=== PATIENT | male | born 1970 | race African-American/Black ===

== ENCOUNTER 2019-10-04 15:22 | Inpatient (IN) | payer MEDICAID, OTHER ==
[~2019-10-04] VITALS: Ht 175.3 cm; Wt 83.7 kg
[2019-10-04] MEDS ORDERED: ASPIRIN 81MG TABLET PO ONE (15:45)
[2019-10-04] MEDS ORDERED: VISCOUS LIDOCAINE 2% 15 ML UDC PO ONE (15:45)
[2019-10-04] MEDS ORDERED: MAGNESIUM/ALUMINUM HYDROXIDE/SIMETHICONE 30ML UDC PO ONE (15:45)
[2019-10-04 16:10] LABS: BASOPHILS % 0.5 % (0.0-2.0); EOSINOPHILS % 3.5 % (0.0-5.0); HEMATOCRIT. 40.2 % (42.0-52.0); HEMOGLOBIN. 13.3 g/dL (14.0-18.0); LYMPHOCYTES % 24.6 % (20.0-50.0); MEAN CORPUSCULAR HEMOGLOBIN 27.8 pg (28.0-32.0); MEAN CORPUSCULAR VOLUME 84.1 fL (80.0-94.0); MEAN PLATELET VOLUME 8.5 fl (7.4-10.4); MONOCYTES % 9.4 % (2.0-8.0); PLATELET 218 x1000/uL (130-400); RED BLOOD CELL COUNT 4.78 mill/uL (4.7-6.1)
[2019-10-04 16:14] LABS: CHLORIDE 109 mEq/L (98-107)
[2019-10-04 16:16] LABS: PROTHROMBIN TIME 10.4 sec (9.6-11.0)
[2019-10-04] MEDS ORDERED: NITROGLYCERIN 0.4MG TABLET SL SL ONE (18:30)
[2019-10-04] MEDS: MORPHINE SULFATE 2 MG/ML CPJ (NOT FOR IM USE) IV PRN ×2 (21:04→21:45)
[2019-10-04 22:20] VITALS: BP 108/75
[2019-10-04] MEDS ORDERED: NITROGLYCERIN 0.4MG TABLET SL SL PRN (22:45)
[2019-10-04] MEDS: METOPROLOL TARTRATE 25MG TABLET PO SCH (23:41)
[2019-10-04] MEDS: HYDROCODONE/ACETAMINOPHEN 10/325MG TABLET PO PRN (23:56)
[2019-10-05] MEDS ORDERED: BACL-141 PO (02:45)
[2019-10-05] MEDS ORDERED: RANI-645 PO (02:45)
[2019-10-05] MEDS ORDERED: TOPUD PO (02:45)
[2019-10-05] MEDS ORDERED: LORA10TA7 PO (02:45)
[2019-10-05] MEDS ORDERED: TRAM100C3 PO (02:45)
[2019-10-05 04:00] VITALS: BP_SYST 100; BP_SYST 94; BP_DIAS 63; BP_DIAS 65
[2019-10-05] MEDS: HYDROCODONE/ACETAMINOPHEN 10/325MG TABLET PO PRN ×2 (05:22→09:05)
[2019-10-05 06:32] LABS: HEMATOCRIT 38.4 % (42.0-52.0); HEMOGLOBIN 12.8 g/dL (14.0-18.0); MEAN CORPUSCULAR VOLUME 83.6 fL (80.0-94.0); PLATELET 192 x1000/uL (130-400); RED BLOOD CELL COUNT 4.59 mill/uL (4.7-6.1); RED CELL DISTRIBUTION WIDTH 16.1 % (11.6-14.6)
[2019-10-05 06:49] LABS: CHLORIDE 109 mEq/L (98-107)
[2019-10-05 06:56] LABS: LDL CHOLESTEROL 70 mg/dL (5-100)
[2019-10-05 06:57] LABS: HDL CHOLESTEROL 38 mg/dL (40-59)
[2019-10-05] MEDS: METOPROLOL TARTRATE 25MG TABLET PO SCH (09:05)
[2019-10-05] MEDS: ENOXAPARIN 40MG/0.4ML SYR SUBCUT SCH (09:06)
[2019-10-05] MEDS: ASPIRIN 325MG EC TABLET PO SCH (09:07)
[2019-10-05 12:00] VITALS: BP 171/76
[2019-10-05] MEDS ORDERED: CLONIDINE 0.1MG TABLET PO PRN (12:15)
[2019-10-05] MEDS ORDERED: MAGNESIUM/ALUMINUM HYDROXIDE/SIMETHICONE 30ML UDC PO PRN (12:15)
[2019-10-05] MEDS ORDERED: DOCUSATE SODIUM 100MG CAPSULE PO PRN (12:15)
[2019-10-05] MEDS ORDERED: ACETAMINOPHEN 325MG TABLET PO PRN (12:15)
[2019-10-05 16:00] VITALS: BP 94/54
[2019-10-05] MEDS: HYDROCODONE/ACETAMINOPHEN 5/325MG TABLET PO PRN (17:53)
[2019-10-05 20:00] VITALS: BP 115/79
[2019-10-05 20:05] LABS: PHOSPHORUS 3.5 mg/dL (2.5-4.9)
[2019-10-05 20:49] LABS: *AMPHETAMINES SCREEN URINE NEGATIVE (NEGATIVE); *BARBITURATES SCREEN URINE NEGATIVE (NEGATIVE)
[2019-10-05 20:50] LABS: *BENZODIAZEPINES SCREEN URINE NEGATIVE (NEGATIVE); *COCAINE SCREEN URINE NEGATIVE (NEGATIVE); CANNABINOID URINE SCREEN PRESUMTIVE POSITIVE (NEGATIVE); METHADONE URINE SCREEN NEGATIVE (NEGATIVE); OPIATES URINE SCREEN PRESUMTIVE POSITIVE (NEGATIVE); PHENCYCLIDINE URINE SCREEN NEGATIVE (NEGATIVE)
[2019-10-06] VITALS: BP 114/77
[2019-10-06] MEDS: HYDROCODONE/ACETAMINOPHEN 5/325MG TABLET PO PRN ×3 (02:50→20:30)
[2019-10-06 04:00] VITALS: BP 107/76
[2019-10-06] MEDS: NITROGLYCERIN 0.4MG TABLET SL SL PRN ×2 (05:03→07:49)
[2019-10-06 08:00] VITALS: BP 108/80
[2019-10-06] MEDS: ASPIRIN 325MG EC TABLET PO SCH (08:14)
[2019-10-06] MEDS: ENOXAPARIN 40MG/0.4ML SYR SUBCUT SCH ×2 (08:15→08:20)
[2019-10-06 09:02] LABS: EOSINOPHILS % 3.7 % (0.0-5.0); HEMATOCRIT. 40.7 % (42.0-52.0); HEMOGLOBIN. 13.5 g/dL (14.0-18.0); LYMPHOCYTES % 24.3 % (20.0-50.0); MEAN CORPUSCULAR HEMOGLOBIN 27.9 pg (28.0-32.0); MEAN PLATELET VOLUME 9.4 fl (7.4-10.4); MONOCYTES % 8.7 % (2.0-8.0); NEUTROPHILS % 62.3 % (40.0-76.0); PLATELET 212 x1000/uL (130-400); RED BLOOD CELL COUNT 4.85 mill/uL (4.7-6.1)
[2019-10-06 12:00] VITALS: BP 128/78
[2019-10-06 13:27] LABS: CHLORIDE 106 mEq/L (98-107)
[2019-10-06 13:38] LABS: PHOSPHORUS 3.7 mg/dL (2.5-4.9)
[2019-10-06 13:39] LABS: LDL CHOLESTEROL 73 mg/dL (5-100)
[2019-10-06 13:41] LABS: HDL CHOLESTEROL 34 mg/dL (40-59)
[2019-10-06 16:00] VITALS: BP 105/77
[2019-10-06 20:25] VITALS: BP 130/96
[2019-10-06] MEDS ORDERED: ZOLPIDEM TARTRATE 5MG TABLET PO PRN (20:30)
[2019-10-07] VITALS: BP 102/64
[2019-10-07 04:00] VITALS: BP 111/83
[2019-10-07 08:00] VITALS: BP 103/73
[2019-10-07] MEDS: ENOXAPARIN 40MG/0.4ML SYR SUBCUT SCH (09:00)
[2019-10-07] MEDS: ASPIRIN 325MG EC TABLET PO SCH (09:28)
[2019-10-07 13:26] VITALS: BP 131/83
== END 2019-10-07 14:44 | disposition home or self-care (01) | DRG 145 ==
LOC: ER 15:22 → 6WST 18:32 → ENRESERV 21:14
PROVIDERS: ADMIT Internal Medicine; ATTEND Internal Medicine
DX: R07.81 Pleurodynia (principal); N17.9 Acute kidney failure, unspecified; D63.8 Anemia in other chronic diseases classified elsewhere; E46 Unspecified protein-calorie malnutrition; E87.8 Other disorders of electrolyte and fluid balance, not elsewhere classified; I10 Essential (primary) hypertension; I44.1 Atrioventricular block, second degree; F19.10 Other psychoactive substance abuse, uncomplicated; J98.11 Atelectasis; R00.1 Bradycardia, unspecified; Z82.3 Family history of stroke; Z82.49 Family history of ischemic heart disease and other diseases of the circulatory system; Z87.891 Personal history of nicotine dependence; Z87.01 Personal history of pneumonia (recurrent); Z68.27 Body mass index [BMI] 27.0-27.9, adult; Z79.899 Other long term (current) drug therapy
CPT/HCPCS: 36415; 71045; 80048; 80053; 80061; 80305; 83735; 83880; 84100; 84443; 84484; 85025; 85027; 93005; 93306; 93970; 99285; J1650; J2270

== ENCOUNTER 2020-07-14 21:52 | Inpatient (IN) | payer MEDICAID, OTHER ==
[~2020-07-14] VITALS: Ht 185.4 cm; Wt 63.0 kg
[~2020-07-14 21:52] MED LIST: BACL-141 PO; LORA10TA7 PO; RANI-645 PO; TOPUD PO; TRAM100C3 PO
[2020-07-14] MEDS ORDERED: AMITRIPTYLINE 25MG TABLET PO ONE (23:00)
[2020-07-14] MEDS ORDERED: MORPHINE SULFATE 4 MG/ML CPJ (NOT FOR IM USE) IV ONE (23:00)
[2020-07-15] MEDS ORDERED: HYDROMORPHONE HCL/PF 2MG/ML CPJ IV ONE ×2 (01:00)
[2020-07-15] MEDS: METHOCARBAMOL 750MG TABLET PO SCH ×4 (01:17→21:50)
[2020-07-15 01:18] LABS: BASOPHILS % 0.4 % (0.0-2.0); EOSINOPHILS % 3.6 % (0.0-5.0); HEMATOCRIT. 35.1 % (42.0-52.0); HEMOGLOBIN. 11.8 g/dL (14.0-18.0); MEAN CORPUSCULAR HEMOGLOBIN 28.6 pg (28.0-32.0); MEAN CORPUSCULAR VOLUME 85.2 fL (80.0-94.0); MEAN PLATELET VOLUME 8.4 fl (7.4-10.4); PLATELET 276 x1000/uL (130-400); RED BLOOD CELL COUNT 4.13 mill/uL (4.7-6.1); RED CELL DISTRIBUTION WIDTH 14.4 % (11.6-14.6)
[2020-07-15 01:23] LABS: CHLORIDE 107 mEq/L (98-107)
[2020-07-15] MEDS ORDERED: METHOCARBAMOL 750MG TABLET PO SCH ×2 (06:00)
[2020-07-15] MEDS ORDERED: AZITHROMYCIN 500 MG TABLET PO NR (09:15)
[2020-07-15] MEDS ORDERED: ONDANSETRON HCL 4MG/2ML INJ IV PRN (09:15)
[2020-07-15] MEDS: MORPHINE SULFATE 2 MG/ML CPJ (NOT FOR IM USE) IV PRN ×3 (09:52→20:04)
[2020-07-15] MEDS ORDERED: CEFTRIAXONE 1 G PREMIX 50 ML IV SCH (10:30)
[2020-07-15] MEDS: HYDROCODONE/ACETAMINOPHEN 10/325MG TABLET PO PRN ×2 (11:58→23:06)
[2020-07-15 18:00] VITALS: BP 106/75
[2020-07-15] MEDS ORDERED: T3 PO (18:32)
[2020-07-15] MEDS ORDERED: GABA-529 MT (18:32)
[2020-07-15] MEDS ORDERED: MOBI7 MT (18:32)
[2020-07-15] MEDS ORDERED: IBUP-516 MT (18:32)
[2020-07-15 18:50] VITALS: BP 106/75
[2020-07-15] MEDS: MORPHINE SULFATE 15MG TABLET SR PO SCH (21:51)
[2020-07-16] VITALS: BP 111/78
[2020-07-16] MEDS: ZOLPIDEM TARTRATE 5MG TABLET PO PRN ×2 (00:39→21:15)
[2020-07-16 04:00] VITALS: BP 123/79
[2020-07-16] MEDS: METHOCARBAMOL 750MG TABLET PO SCH ×3 (05:23→21:12)
[2020-07-16 08:00] VITALS: BP 127/85
[2020-07-16] MEDS: AZITHROMYCIN 250 MG TABLET PO SCH (08:23)
[2020-07-16] MEDS: MORPHINE SULFATE 15MG TABLET SR PO SCH ×2 (08:24→21:12)
[2020-07-16] MEDS: CEFTRIAXONE 1,000 MG in DEXTROSE 5% WATER 50 ML IV SCH (09:44)
[2020-07-16] MEDS: HYDROCODONE/ACETAMINOPHEN 10/325MG TABLET PO PRN ×2 (10:04→18:13)
[2020-07-16] MEDS ORDERED: LORAZEPAM 2MG/ML CPJ IV NR (10:15)
[2020-07-16 12:00] VITALS: BP 116/77
[2020-07-16] MEDS ORDERED: GADOTERATE MEGLUMINE 5 MMOL/10 ML VIAL IV ONE (12:59)
[2020-07-16] MEDS: DOCUSATE SODIUM 100MG CAPSULE PO SCH (15:44)
[2020-07-16 16:00] VITALS: BP 115/73
[2020-07-16 20:00] VITALS: BP 102/61
[2020-07-17] VITALS: BP 100/66
[2020-07-17] MEDS: HYDROCODONE/ACETAMINOPHEN 10/325MG TABLET PO PRN ×4 (02:20→16:09)
[2020-07-17 04:00] VITALS: BP 106/63
[2020-07-17] MEDS: METHOCARBAMOL 750MG TABLET PO SCH ×3 (06:27→21:24)
[2020-07-17 08:00] VITALS: BP 112/76
[2020-07-17] MEDS: MULTIVITAMINS,THER W-MINERALS TABLET PO SCH (09:00)
[2020-07-17] MEDS: CEFTRIAXONE 1,000 MG in DEXTROSE 5% WATER 50 ML IV SCH (09:00)
[2020-07-17] MEDS: AZITHROMYCIN 250 MG TABLET PO SCH (09:01)
[2020-07-17] MEDS: MORPHINE SULFATE 15MG TABLET SR PO SCH ×2 (09:01→21:29)
[2020-07-17] MEDS: DOCUSATE SODIUM 100MG CAPSULE PO SCH (09:01)
[2020-07-17] MEDS ORDERED: NALOXONE HCL 0.4 MG/ML 1ML VIAL IV PRN (11:45)
[2020-07-17 12:00] VITALS: BP 135/90
[2020-07-17] MEDS: GABAPENTIN 300MG CAPSULE PO SCH ×2 (15:14→21:31)
[2020-07-17] MEDS: HYDROMORPHONE HCL/PF 2MG/ML CPJ IV PRN (19:46)
[2020-07-17 20:00] VITALS: BP 128/69
[2020-07-18] VITALS: BP 124/78
[2020-07-18] MEDS: HYDROCODONE/ACETAMINOPHEN 10/325MG TABLET PO PRN ×4 (00:07→18:29)
[2020-07-18] MEDS: LIDOCAINE 5% PATCH TOP SCH ×2 (00:07→10:23)
[2020-07-18] MEDS: ZOLPIDEM TARTRATE 5MG TABLET PO PRN ×2 (00:08→21:14)
[2020-07-18 04:00] VITALS: BP 120/75
[2020-07-18] MEDS: METHOCARBAMOL 750MG TABLET PO SCH ×3 (06:22→21:14)
[2020-07-18] MEDS: GABAPENTIN 300MG CAPSULE PO SCH ×3 (06:22→21:14)
[2020-07-18 08:00] VITALS: BP 118/79
[2020-07-18] MEDS: CEFTRIAXONE 1,000 MG in DEXTROSE 5% WATER 50 ML IV SCH (08:45)
[2020-07-18] MEDS: AZITHROMYCIN 250 MG TABLET PO SCH (08:46)
[2020-07-18] MEDS: DOCUSATE SODIUM 100MG CAPSULE PO SCH (08:46)
[2020-07-18] MEDS: MULTIVITAMINS,THER W-MINERALS TABLET PO SCH (08:46)
[2020-07-18] MEDS: MORPHINE SULFATE 15MG TABLET SR PO SCH ×2 (08:47→21:17)
[2020-07-18 09:34] LABS: BASOPHILS % 0.6 % (0.0-2.0); EOSINOPHILS % 3.2 % (0.0-5.0); HEMATOCRIT. 38.3 % (42.0-52.0); HEMOGLOBIN. 13.1 g/dL (14.0-18.0); LYMPHOCYTES % 22.1 % (20.0-50.0); MEAN CORPUSCULAR HEMOGLOBIN 28.6 pg (28.0-32.0); MEAN CORPUSCULAR VOLUME 83.4 fL (80.0-94.0); MEAN PLATELET VOLUME 8.2 fl (7.4-10.4); MONOCYTES % 9.9 % (2.0-8.0); NEUTROPHILS % 64.2 % (40.0-76.0); PLATELET 285 x1000/uL (130-400); RED BLOOD CELL COUNT 4.59 mill/uL (4.7-6.1)
[2020-07-18 09:47] LABS: CHLORIDE 99 mEq/L (98-107)
[2020-07-18 10:10] LABS: KAPPA LT CHAINS FREE SERUM 28.6 mg/L (3.3-19.4); KAPPA/LAMBDA RATIO 1.1 (0.26-1.65); LAMBDA LT CHAINS FREE SERUM 26.1 mg/L (5.7-26.3)
[2020-07-18] MEDS ORDERED: ZOLP5TAB2 PO (11:51)
[2020-07-18] MEDS ORDERED: HYDR-4009 PO ×2 (11:51)
[2020-07-18] MEDS ORDERED: LIDO700A30 TOP (11:51)
[2020-07-18] MEDS ORDERED: HYDR2TAB7 MT ×2 (11:51)
[2020-07-18] MEDS ORDERED: GABA-532 PO (11:51)
[2020-07-18] MEDS ORDERED: DOCU-150 PO (11:51)
[2020-07-18] MEDS ORDERED: MSCON15 PO ×2 (11:51)
[2020-07-18] MEDS ORDERED: METH-774 PO (11:51)
[2020-07-18] MEDS ORDERED: LEVO500T89 MT ×2 (11:53)
[2020-07-18] MEDS: HYDROMORPHONE HCL/PF 2MG/ML CPJ IV PRN ×2 (13:17→21:24)
[2020-07-18 16:00] VITALS: BP 109/87
[2020-07-19] MEDS: HYDROMORPHONE HCL/PF 2MG/ML CPJ IV PRN ×3 (03:25→13:05)
[2020-07-19 04:00] VITALS: BP 111/73
[2020-07-19] MEDS: METHOCARBAMOL 750MG TABLET PO SCH ×3 (06:19→21:36)
[2020-07-19] MEDS: GABAPENTIN 300MG CAPSULE PO SCH ×3 (06:19→21:36)
[2020-07-19 06:49] LABS: BASOPHILS % 0.5 % (0.0-2.0); EOSINOPHILS % 3.7 % (0.0-5.0); HEMATOCRIT. 39.8 % (42.0-52.0); HEMOGLOBIN. 13.4 g/dL (14.0-18.0); LYMPHOCYTES % 25.5 % (20.0-50.0); MEAN CORPUSCULAR HEMOGLOBIN 28.5 pg (28.0-32.0); MEAN CORPUSCULAR VOLUME 84.6 fL (80.0-94.0); MEAN PLATELET VOLUME 8.1 fl (7.4-10.4); MONOCYTES % 11.2 % (2.0-8.0); NEUTROPHILS % 59.1 % (40.0-76.0); PLATELET 282 x1000/uL (130-400); RED BLOOD CELL COUNT 4.71 mill/uL (4.7-6.1)
[2020-07-19 06:52] LABS: CHLORIDE 100 mEq/L (98-107)
[2020-07-19] MEDS: LIDOCAINE 5% PATCH TOP SCH (09:00)
[2020-07-19] MEDS: CEFTRIAXONE 1,000 MG in DEXTROSE 5% WATER 50 ML IV SCH (09:57)
[2020-07-19] MEDS: MULTIVITAMINS,THER W-MINERALS TABLET PO SCH (09:58)
[2020-07-19] MEDS: DOCUSATE SODIUM 100MG CAPSULE PO SCH (09:58)
[2020-07-19] MEDS: AZITHROMYCIN 250 MG TABLET PO SCH (09:59)
[2020-07-19] MEDS ORDERED: LACTULOSE 20G/30ML UDC PO PRN (10:00)
[2020-07-19] MEDS: HYDROCODONE/ACETAMINOPHEN 10/325MG TABLET PO PRN (16:10)
[2020-07-19 20:00] VITALS: BP 103/74
[2020-07-19] MEDS ORDERED: MORPHINE SULFATE 15MG TABLET SR PO SCH (21:00)
[2020-07-19] MEDS: ZOLPIDEM TARTRATE 5MG TABLET PO PRN (21:35)
[2020-07-20] VITALS (7 sets, daily range): BP systolic 90–107; BP diastolic 44–80
[2020-07-20] MEDS: HYDROMORPHONE HCL/PF 2MG/ML CPJ IV PRN ×4 (03:32→20:01)
[2020-07-20] MEDS: METHOCARBAMOL 750MG TABLET PO SCH ×3 (05:54→21:34)
[2020-07-20] MEDS: GABAPENTIN 300MG CAPSULE PO SCH ×3 (05:54→21:34)
[2020-07-20] MEDS: MULTIVITAMINS,THER W-MINERALS TABLET PO SCH (09:09)
[2020-07-20] MEDS: AZITHROMYCIN 250 MG TABLET PO SCH (09:09)
[2020-07-20] MEDS: DOCUSATE SODIUM 100MG CAPSULE PO SCH (09:09)
[2020-07-20] MEDS: CEFTRIAXONE 1,000 MG in DEXTROSE 5% WATER 50 ML IV SCH (09:09)
[2020-07-20] MEDS: LIDOCAINE 5% PATCH TOP SCH (09:15)
[2020-07-20] MEDS: MORPHINE SULFATE 15MG TABLET SR PO SCH ×2 (11:24→22:31)
[2020-07-20] MEDS: ZOLPIDEM TARTRATE 5MG TABLET PO PRN (22:30)
[2020-07-21] VITALS (7 sets, daily range): BP systolic 96–117; BP diastolic 57–85
[2020-07-21] MEDS: HYDROMORPHONE HCL/PF 2MG/ML CPJ IV PRN ×4 (01:15→17:14)
[2020-07-21] MEDS: GABAPENTIN 300MG CAPSULE PO SCH ×2 (06:31→15:08)
[2020-07-21] MEDS: METHOCARBAMOL 750MG TABLET PO SCH ×2 (06:31→15:08)
[2020-07-21] MEDS: MULTIVITAMINS,THER W-MINERALS TABLET PO SCH (10:10)
[2020-07-21] MEDS: DOCUSATE SODIUM 100MG CAPSULE PO SCH (10:10)
[2020-07-21] MEDS: LIDOCAINE 5% PATCH TOP SCH (10:11)
[2020-07-21] MEDS: MORPHINE SULFATE 15MG TABLET SR PO SCH (10:12)
[2020-07-21] MEDS ORDERED: HYDR-4009 PO (11:29)
[2020-07-21] MEDS ORDERED: MSCON15 PO (11:29)
[2020-07-21] MEDS ORDERED: SORBITOL 70% SOLN 30ML PO NR (11:45)
== END 2020-07-21 19:40 | disposition home health service (06) | DRG 343 ==
LOC: ER 22:03 → 6EST 07-15 04:20 → ENRESERV 07-15 17:24 → 6EST 07-15 21:20
PROVIDERS: ADMIT Internal Medicine; ATTEND Internal Medicine
DX: M48.56XA Collapsed vertebra, not elsewhere classified, lumbar region, initial encounter for fracture (principal); C79.51 Secondary malignant neoplasm of bone; C79.89 Secondary malignant neoplasm of other specified sites; M48.54XA Collapsed vertebra, not elsewhere classified, thoracic region, initial encounter for fracture; M48.02 Spinal stenosis, cervical region; M48.04 Spinal stenosis, thoracic region; D64.9 Anemia, unspecified; G89.29 Other chronic pain; F17.200 Nicotine dependence, unspecified, uncomplicated; M47.812 Spondylosis without myelopathy or radiculopathy, cervical region; M51.26 Other intervertebral disc displacement, lumbar region; M48.061 Spinal stenosis, lumbar region without neurogenic claudication; M47.26 Other spondylosis with radiculopathy, lumbar region; M51.16 Intervertebral disc disorders with radiculopathy, lumbar region; J45.909 Unspecified asthma, uncomplicated; F12.10 Cannabis abuse, uncomplicated; M47.817 Spondylosis without myelopathy or radiculopathy, lumbosacral region; R91.8 Other nonspecific abnormal finding of lung field; M51.36 Other intervertebral disc degeneration, lumbar region; Z82.49 Family history of ischemic heart disease and other diseases of the circulatory system; Z87.01 Personal history of pneumonia (recurrent); Z71.6 Tobacco abuse counseling; Z71.51 Drug abuse counseling and surveillance of drug abuser
CPT/HCPCS: 36415; 71250; 72131; 72156; 72157; 72158; 74176; 80048; 80053; 82378; 82784; 83880; 83883; 84484; 85025; 86334; 97116; 97162; 97530; 97760; 99291; 99406; A9577; J0696; J1170; J2060; J2270; J2405; J7040; J7060